=== PATIENT | female | born 2000 | race Caucasian/White ===

== ENCOUNTER 2021-02-23 02:37 | Emergency (ER) | payer SELFPAY ==
[~2021-02-23] VITALS: Ht 154.9 cm; Wt 49.0 kg
[2021-02-23 02:44] VITALS: BP 115/62
[2021-02-23] MEDS ORDERED: AMOX-494 MT (03:22)
[2021-02-23] MEDS ORDERED: IBUP-2029 MT (03:24)
== END 2021-02-23 03:30 | disposition home or self-care (01) ==
LOC: ER 02:37
DX: H72.91 Unspecified perforation of tympanic membrane, right ear (principal)
CPT/HCPCS: 81025; 99283